=== PATIENT | female | born 1980 | race Caucasian/White ===

== ENCOUNTER → 2016-11-05 | Outpatient (CLI) | payer BC ==
[~2016-11-05] MED LIST: LEVO75TA PO; PRENTAB26 PO
[2016-11-05 12:32] LABS: URINE APPEARANCE CLEAR (CLEAR); URINE BILIRUBIN NEG (NEG); URINE COLOR YELLOW; URINE NITRITE NEG (NEG); URINE PH 6.5 (4.5-7.5); URINE SPECIFIC GRAVITY 1.012 (1.000-1.030); UROBILINOGEN NEG (NEG)
[2016-11-05 12:46] LABS: MANUAL MICROSCOPIC REQUIRED? NO; REVIEW REQ? NO
== END | disposition home or self-care (01) ==
LOC: C.LABSPEC 11:06
PROVIDERS: ATTEND Obstetrics & Gynecology
DX: O09.521 Supervision of elderly multigravida, first trimester (principal); Z3A.00 Weeks of gestation of pregnancy not specified

== ENCOUNTER → 2016-11-14 | Outpatient (CLI) | payer BC | END | disposition home or self-care (01) | LOC: C.PAPS 11:00 | PROVIDERS: ATTEND Obstetrics & Gynecology | DX: O99.281 Endocrine, nutritional and metabolic diseases complicating pregnancy, first trimester (principal); Z01.419 Encounter for gynecological examination (general) (routine) without abnormal findings; Z11.51 Encounter for screening for human papillomavirus (HPV) ==

== ENCOUNTER → 2016-11-14 | Outpatient (CLI) | payer BC ==
[2016-11-14 10:05] LABS: BASO % 0.2 %; BASO ABS # 0.02 K/uL (0-0.2); COMPLETE YES; EOS % 0.6 %; HEMATOCRIT 40.3 % (37-47); IG% 0.2 %; LYMPH % 19.2 %; LYMPH ABS # 1.58 K/uL (1.2-3.4); MEAN CELL VOLUME 86.7 fL (80-100); MEAN CORPUSCULAR HGB CONC 35.7 g/dl (32-36); MEAN PLATELET VOLUME 9.5 fL (7.4-10.4); NEUT % 75.8 %; PLATELET COUNT 226 K/uL (130-400); RED BLOOD COUNT 4.65 M/uL (4.2-5.4); WHITE BLOOD COUNT 8.24 K/uL (4.8-10.8)
[2016-11-14 10:31] LABS: THYROID STIMULATING HORMONE 3.12 uIu/ml (0.300-4.500)
[2016-11-16 14:08] LABS: CHLAMYDIA TRACH RNA*** NOT DETECTED (NOT DETECTED); GC (NEIS GONORRHOEAE)RNA** NOT DETECTED (NOT DETECTED)
== END | disposition home or self-care (01) ==
LOC: C.LAB1850 08:57
PROVIDERS: ATTEND Obstetrics & Gynecology
DX: O09.523 Supervision of elderly multigravida, third trimester (principal)

== ENCOUNTER → 2016-12-12 | Outpatient (CLI) | payer BC ==
[2016-12-12 12:07] LABS: THYROID STIMULATING HORMONE 2.19 uIu/ml (0.300-4.500)
== END | disposition home or self-care (01) ==
LOC: C.LAB1850 10:18
PROVIDERS: ATTEND Obstetrics & Gynecology
DX: O99.281 Endocrine, nutritional and metabolic diseases complicating pregnancy, first trimester (principal)

== ENCOUNTER → 2017-01-09 | Outpatient (CLI) | payer BC ==
[2017-01-09 17:27] LABS: GTGD 50 Grams
== END | disposition home or self-care (01) ==
LOC: C.LAB1850 16:04
PROVIDERS: ATTEND Obstetrics & Gynecology
DX: O99.281 Endocrine, nutritional and metabolic diseases complicating pregnancy, first trimester (principal); O09.522 Supervision of elderly multigravida, second trimester; Z3A.00 Weeks of gestation of pregnancy not specified

== ENCOUNTER → 2017-01-28 | Outpatient (CLI) | payer BC | END | disposition home or self-care (01) | LOC: C.LAB1850 09:01 | PROVIDERS: ATTEND Obstetrics & Gynecology | DX: O28.1 Abnormal biochemical finding on antenatal screening of mother (principal) ==

== ENCOUNTER → 2017-04-01 | Outpatient (CLI) | payer BC ==
[2017-04-01 19:18] LABS: URINE APPEARANCE CLEAR (CLEAR); URINE BILIRUBIN NEG (NEG); URINE COLOR YELLOW; URINE NITRITE NEG (NEG); URINE SPECIFIC GRAVITY 1.012 (1.000-1.030); UROBILINOGEN NEG (NEG)
[2017-04-01 19:20] LABS: MANUAL MICROSCOPIC REQUIRED? NO; REVIEW REQ? NO
== END | disposition home or self-care (01) ==
LOC: C.LABSPEC 17:48
PROVIDERS: ATTEND Obstetrics & Gynecology
DX: O99.283 Endocrine, nutritional and metabolic diseases complicating pregnancy, third trimester (principal); Z3A.00 Weeks of gestation of pregnancy not specified

== ENCOUNTER → 2017-04-08 | Outpatient (CLI) | payer BC | END | disposition home or self-care (01) | LOC: C.LAB1850 08:15 | PROVIDERS: ATTEND Obstetrics & Gynecology | DX: O09.523 Supervision of elderly multigravida, third trimester (principal); O99.283 Endocrine, nutritional and metabolic diseases complicating pregnancy, third trimester; E03.9 Hypothyroidism, unspecified ==

== ENCOUNTER → 2017-06-04 | Outpatient (CLI) | payer BC | END | disposition home or self-care (01) | LOC: C.LABSPEC 18:08 | PROVIDERS: ATTEND Obstetrics & Gynecology | DX: O09.523 Supervision of elderly multigravida, third trimester (principal); Z3A.00 Weeks of gestation of pregnancy not specified ==

== ENCOUNTER 2017-06-20 03:48 | Inpatient (IN) | payer BC ==
[~2017-06-20] VITALS: Ht 167.6 cm; Wt 97.0 kg
[2017-06-20] MEDS ORDERED: LACTATED RINGER'S 1000ML 1,000 ML IV SCH (04:40)
[2017-06-20] MEDS ORDERED: LACTATED RINGER'S 1000ML 1,000 ML IV PRN (04:40)
[2017-06-20] MEDS ORDERED: NURSING VERBAL MED ORDER ONE ×2 (04:45→18:45)
[2017-06-20 05:21] LABS: HEMATOCRIT 39.2 % (37-47); HEMOGLOBIN 13.3 g/dL (12.0-16.0); MEAN CELL VOLUME 88.9 fL (80-100); MEAN CORPUSCULAR HEMOGLOBIN 30.2 pg (25-34); MEAN CORPUSCULAR HGB CONC 33.9 g/dl (32-36); MEAN PLATELET VOLUME 9.2 fL (7.4-10.4); PLATELET COUNT 164 K/uL (130-400); RED CELL DISTRIBUTION WIDTH CV 13.2 % (11.5-14.5); RED CELL DISTRIBUTION WIDTH SD 42.9 fL (36.4-46.3)
[2017-06-20] MEDS ORDERED: LEVOTHYROXINE 88 MCG TAB PO ONE (05:30)
[2017-06-20] MEDS ORDERED: BUPIVACAINE 0.25% 30 ML VIAL ONE (05:34)
[2017-06-20] MEDS ORDERED: FENTANYL CITRATE INJ 50 MCG/1 ML 2 ML VIAL ONE (05:34)
[2017-06-20] MEDS ORDERED: EpHEDrine SULFATE INJ 50 MG/ML AMP ONE (05:34)
[2017-06-20] MEDS ORDERED: FENTANYL 2MCG/ML ROPIV 1.25MG/ML 100ML BAG EPI ONE (05:35)
[2017-06-20] MEDS ORDERED: NALOXONE HCL INJ 1 MG in SODIUM CHLORIDE 0.9% 1000ML 1,000 ML IV PRN ×4 (06:16)
[2017-06-20] MEDS ORDERED: LACTATED RINGER'S 1000ML 500 ML IV PRN (06:16)
[2017-06-20 06:25] VITALS: Ht 167.6 cm; Wt 97.0 kg
[2017-06-20] MEDS ORDERED: FENTANYL 2MCG/ML ROPIV 1.25MG/ML 100ML BAG EPI PRN (06:30)
[2017-06-20] MEDS ORDERED: DiphenhydrAMINE HCL 50 MG/ML VIAL IV PRN (06:30)
[2017-06-20] MEDS ORDERED: NALOXONE HCL INJ 0.4 MG/1 ML VIAL/CARP IV PRN (06:30)
[2017-06-20] MEDS ORDERED: ONDANSETRON INJ 2 MG/ML 2 ML VIAL IV PRN (06:30)
[2017-06-20] MEDS ORDERED: EpHEDrine SULFATE INJ 50 MG/ML AMP IV PRN (06:30)
[2017-06-20] MEDS ORDERED: PROMETHAZINE HCL INJ 25 MG in SODIUM CHLORIDE 0.9% 50ML 50 ML IV PRN (06:30)
[2017-06-20] MEDS ORDERED: NALBUPHINE HCL INJ 10 MG/ML AMP IV PRN (06:30)
[2017-06-20] MEDS ORDERED: DIPHTHERIA/TETANUS/PERTUSSIS 0.5 ML SYR/VIAL IM. ONE (10:30)
[2017-06-20] MEDS ORDERED: SUPERCREAM 0.870 % 15GM JAR EXT PRN (10:30)
[2017-06-20] MEDS ORDERED: ACETAMINOPHEN 325 MG TAB PO PRN (10:30)
[2017-06-20] MEDS ORDERED: LANOLIN OINT EXT PRN (10:30)
[2017-06-20] MEDS ORDERED: BENZOCAINE 20% AER SPR 82.5 GM CAN EXT PRN (10:30)
[2017-06-20] MEDS ORDERED: ACETAMINOPHEN/CODEINE 300/30MG TAB PO PRN ×2 (10:30)
[2017-06-20] MEDS ORDERED: HYDROCORTISONE ACETATE 25 MG SUPP PR PRN (10:30)
[2017-06-20] MEDS ORDERED: OXYCODONE/ACETAMINOPHEN 5-325 TAB PO PRN (10:30)
--- NOTE | 2017-06-20 10:59 | Anesthesia Procedure Note ---
Anesthesia Epidural Removal Nt Date & Time Jun 20, 2017 at 10:59 Vital Signs Pain Intensity: 0.0 Notes Mental Status: alert / awake / arousable, participated in evaluation Nausea / Vomiting: adequately controlled Pain: adequately controlled Airway Patency, RR, SpO2: stable & adequate BP & HR: stable & adequate Hydration State: stable & adequate Neuraxial Anesthesia: was administered, sensory block is resolving Anesthetic Complications: no major complications apparent, pt satisfied with anesthetic care Epidural: removed without complications, with tip intact
[2017-06-20] MEDS: OXYTOCIN 30 UNITS/500ML NSS IV PRN ×2 (11:25→13:01)
--- NOTE | 2017-06-20 12:34 | DELIVERY SUMMARY ---
DATE OF OPERATION: 06/20/2017 Xi presented in labor for Dr. Painter had signed over. She was 7-8 cm. She had an epidural, group B strep negative, category 1 tracing. She rapidly progressed to fully dilate and pushed. There was a small band tissue preventing delivery related to her prior episiotomy. I asked the patient if she preferred to deliver through this or have a small episiotomy. She said small episiotomy was her preference. So, a 1 cm episiotomy was performed midline. Baby's head soon delivered. Clear fluid. No nuchal cord. Mouth and nares suctioned. Baby was delivered with gentle traction. No excessive force used. Live vigorous male infant. Cord clamped and cut. Cord gases obtained. Cord blood obtained. Placenta removed with gentle traction. IV Pitocin started. Small median episiotomy repaired with 3-0 Vicryl. No extension. Sponge and instrument counts correct. Estimated blood loss 250 mL. I attest to the content of the Intraoperative Record and any orders documented therein. Any exception s are noted below.
[2017-06-20 16:50] VITALS: BP 114/77; PULSE 99; TEMP 37.2
[2017-06-20 20:20] VITALS: BP 116/72; PULSE 99; TEMP 37
[2017-06-20] MEDS: IBUPROFEN 600 MG TAB PO PRN (20:34)
[2017-06-20] MEDS: PRENATAL VITAMIN TAB PO SCH (20:35)
[2017-06-20] MEDS: DOCUSATE SODIUM 100 MG CAP PO SCH (20:35)
[2017-06-21 00:20] VITALS: BP 103/61; PULSE 77; TEMP 36.6
[2017-06-21 07:11] LABS: HEMATOCRIT 28.4 % (37-47)
[2017-06-21] MEDS: LEVOTHYROXINE 88 MCG TAB PO SCH (07:24)
[2017-06-21 07:25] VITALS: BP 114/70; PULSE 78; TEMP 36.6
[2017-06-21] MEDS ORDERED: PRENATAL VITAMIN TAB PO SCH (08:00)
--- NOTE | 2017-06-21 08:03 | Progress Note ---
Subjective Jun 21, 2017. Subjective conversation w/ patient, physical exam, chart review Ambulation: ambulating normally Voiding: no voiding problems Diet Tolerance: Regular Diet Lochia: Small Objective Vital Signs Date Time Temp Pulse Resp B/P (MAP) Pulse Ox O2 Delivery O2 Flow Rate FiO2 06/21/17 00:20 Room Air 06/21/17 00:20 36.6 77 18 103/61 (75) Room Air 06/20/17 20:20 37.0 99 18 116/72 (87) Room Air 06/20/17 16:50 Room Air 06/20/17 16:50 37.2 99 20 114/77 (89) Room Air Physical Exam General Appearance: WELL-APPEARING Abdomen: non tender Fundus: Firm Extremities: no calf tenderness Laboratory Results Last 24 Hours Test 06/20/17 23:28 06/21/17 06:12 Amniotic Fluid Protein POS Hemoglobin 10.0 g/dL Hematocrit 28.4 % Assessment and Plan Post- Day#: 1 Continue Routine Care: Patient ambulating doing well breast-feeding well minimal bleeding continue current care
[2017-06-21] MEDS: DOCUSATE SODIUM 100 MG CAP PO SCH ×2 (09:03→20:21)
[2017-06-21] MEDS: IBUPROFEN 600 MG TAB PO PRN (10:42)
[2017-06-21 15:50] VITALS: BP 118/71; PULSE 75; TEMP 36.5
[2017-06-21] MEDS ORDERED: BISACODYL 5 MG TABEC PO SCH (20:00)
[2017-06-21] MEDS: PRENATAL VITAMIN TAB PO SCH (20:21)
[2017-06-21 23:20] VITALS: BP 108/68; PULSE 77; TEMP 36.8
--- NOTE | 2017-06-22 06:29 | Progress Note ---
Subjective Jun 22, 2017. Subjective conversation w/ patient, physical exam, chart review, lab review Ambulation: ambulating normally Voiding: no voiding problems Diet Tolerance: Regular Diet Lochia: Small Feeding Type: Breast Feeding Objective Vital Signs Date Time Temp Pulse Resp B/P (MAP) Pulse Ox O2 Delivery O2 Flow Rate FiO2 06/21/17 23:20 36.8 77 18 108/68 (81) Room Air 06/21/17 23:20 Room Air 06/21/17 15:50 Room Air 06/21/17 15:50 36.5 75 16 118/71 (87) 06/21/17 07:25 36.6 78 16 114/70 (85) Room Air 06/21/17 07:25 Room Air Physical Exam General Appearance: WELL-APPEARING Abdomen: non tender Fundus: Firm Extremities: no calf tenderness Laboratory Results Last 24 Hours Test 06/22/17 05:51 Assessment and Plan Post- Day#: 2 Continue Routine Care: day 2 patient is doing well tenderness minimal bleeding wishes discharged home
--- NOTE | 2017-06-22 06:30 | Discharge Instructions ---
Discharge Instructions Date of Service Jun 22, 2017. Admission Reason for Admission: LABOR Discharge Discharge Diagnosis / Problem: Discharge Goals Goal(s): Routine recovery after delivery Activity Recommendations Activity Limitations: per Instructions/Follow-up section . Instructions / Follow-Up Instructions / Follow-Up ACTIVITY RECOMMENDATIONS: * Gradual return to full activity over the next 2-3 weeks. * No lifting - nothing heavier than baby over the next 2-3 weeks. * Do not engage in vigorous exercise, sexual activity or sports until cleared by your physician. * Do not drive or operate any motorized equipment until cleared by your physician. * You may shower/bathe daily. MEDICATIONS: For discomfort or pain, you may use Acetaminophen (Tylenol), Ibuprofen (Advil), or Naproxen (Aleve) following the package directions. For constipation you may use Colace following the package directions. BREAST CARE: If you are not breast feeding: * Wear a supportive bra 24 hours a day for one to two weeks. * Avoid stimulating your breasts and nipples as much as possible during the first few weeks after delivery. * When taking a shower, have the warm water hit your back, not breasts. * When your breasts feel full, apply ice packs. Usually three to four times a day helps ease the discomfort. * Take a mild pain medication (Tylenol / Motrin) when you are uncomfortable. If breast feeding: * Use breast milk to lubricate nipples. Lansinoh cream may be used for sore nipples. You do not need to remove cream prior to breast feeding. If using a different brand of cream, check the label for directions regarding removal of cream prior to nursing. * Wear a supportive bra. * If having problems with breasts or breast feeding, call a dairy feed sales consultant or your health care provider. EPISIOTOMY CARE: After delivery, if you have an episiotomy (stitches), the following steps will ease discomfort and aid healing. * For the first 24 hours after delivery, place ice packs next to your episiotomy to help reduce swelling. * After the first 24 hour-period, sitz baths, either portable or in the tub, are suggested. A shower with a shower arm sprayed over the episiotomy may be comforting. * Shannan care should be done after each voiding and bowel movement. Squirt warm water from a plastic bottle over the perineum (region of the body between the anus and urinary opening) and pat dry. * Use Dermoplast to ease discomfort. Shake container. [place] directly over the episiotomy. Place a Tucks on a clean sanitary pad next to your episiotomy. SPECIAL CARE INSTRUCTIONS: When you are discharged from the hospital, it is important for you to follow the instructions listed below: * During the first week at home, you should be able to care for yourself and your baby. In addition, the usual light household activities are encouraged. * Limit your activities to the way you feel. Do not try to clean the house or move furniture. Be sensible. * If you actively engage in sports and have done so up until the time of your delivery, you may resume these activities as soon as you feel able. This may take up to one month or even longer. Use good judgment. * Continue to take your vitamins for at least six weeks after the of your baby. * Your diet need not be limited unless you were on a special diet before your delivery. Breast-feeding mothers need around 2500 calories per day and at least 64-80 ounces of fluid per day (8 to 10 glasses). * You should eat foods from the four major food groups. Crash diets or fad diets are to be avoided. Eating lean meats, fresh fruits and vegetables, low-fat dairy products, high fiber foods and a regular exercise program, will help you get back to your pre- weight without putting your health at risk. * Constipation is sometimes a problem after delivery. Take a mild laxative as needed. If breast feeding, Milk of Magnesia is acceptable to use. You may use a suppository or Fleets enema if no episiotomy. * A daily shower or tub bath is suggested. Be sure to thoroughly and gently dry the perineum. * A bloody vaginal discharge will usually continue until around four weeks post . A small amount of bleeding may continue for as long as six weeks. Vaginal discharge changes from the bright red bleeding after delivery to pink then brownish and finally yellowish-pink before becoming white and disappearing. * Bleeding may increase with activity. Your first period may come in 4-8 weeks. If you are breast feeding, your period may be delayed even longer. * [place] (sex) can begin whenever both you and your partner feel comfortable and do not have any form of genital infection. It is recommended that you wait at least six weeks for internal and external healing to occur. If you have questions, please talk to your health care practitioner. A condom should be used to prevent infection and . * Foreplay, gentle intercourse and lubrication is very important the first several times to prevent pain. A water-based lubricant such as K-Y jelly or Astroglide may be used. * If you have RH negative blood and your baby is RH positive, you will receive RHOGAM by injection prior to discharge. The nurse will give you a card to keep with you that has the date and place that you received RHOGAM after delivery. * During your care, you had a Rubella screen done to check for the presence of rubella antibodies in your blood. If your test was negative, you will receive a Rubella vaccine prior to discharge. This vaccine may cause a fever, soreness at the injection site and flu-like symptoms. If these symptoms persist, notify your health care practitioner. is not advised for one month after a Rubella vaccine. * Verbalizes understanding of car seat law as reviewed with patient nursing. * Car Seat hand-out given and reviewed with patient by nursing. * Shaken baby information reviewed with patient by nursing. Call you doctor if: * Heavy bleeding (saturating several pads an hour) or passing clots the size of your fist. * A fever >101 degrees F (38.3 degrees C) on two occasions four hours apart and /or chills. * Unusual pain in the pelvic or vaginal areas. * "Baby Blues" lasting longer than two weeks. If you have any questions or concerns, call your health care practitioner at . FOLLOW UP VISIT: * Please call the office at to schedule a 6 week examination. It is important you keep this appointment. It is important for you to make arrangements for either yearly or twice yearly check-ups thereafter. Current Hospital Diet Patient's current hospital diet: Regular OB Diet Discharge Diet Recommended Diet: Regular OB Diet Pending Studies Studies pending at discharge: no Medical Emergencies . Who to Call and When: Medical Emergencies: If at any time you feel your situation is an emergency, please call 911 immediately. . Non-Emergent Contact Non-Emergency issues call your: Leather Skinner . . "Provider Documentation" section prepared by Gene Rodriguez. .
[2017-06-22] MEDS ORDERED: BISACODYL 10 MG SUPP PR PRN (07:00)
[2017-06-22 07:01] LABS: HEMATOCRIT 30.2 % (37-47); HEMOGLOBIN 10.5 g/dL (12.0-16.0); MEAN CELL VOLUME 89.3 fL (80-100); MEAN CORPUSCULAR HEMOGLOBIN 31.1 pg (25-34); MEAN CORPUSCULAR HGB CONC 34.8 g/dl (32-36); MEAN PLATELET VOLUME 8.7 fL (7.4-10.4); PLATELET COUNT 177 K/uL (130-400); RED CELL DISTRIBUTION WIDTH CV 13.4 % (11.5-14.5); RED CELL DISTRIBUTION WIDTH SD 43.7 fL (36.4-46.3); WHITE BLOOD COUNT 10.85 K/uL (4.8-10.8)
[2017-06-22 07:15] VITALS: BP 112/72; PULSE 83; TEMP 36.5
[2017-06-22] MEDS: LEVOTHYROXINE 88 MCG TAB PO SCH (07:17)
[2017-06-22] MEDS: DOCUSATE SODIUM 100 MG CAP PO SCH (09:35)
[2017-06-22] MEDS: IBUPROFEN 600 MG TAB PO PRN (09:35)
[2017-06-22 11:40] VITALS: BP_DIAS 72; PULSE 83; TEMP 36.5
== END 2017-06-22 12:30 | disposition home or self-care (01) | DRG 775 ==
LOC: C.LD 03:48 → C.OPB 03:48 → C.LD 04:43 → C.OPB 04:45 → C.OBG 16:43
PROVIDERS: ADMIT Obstetrics & Gynecology; ATTEND Obstetrics & Gynecology
PROC: 0W8NXZZ Division of Female Perineum, External Approach (ICD-10-PCS; principal; 2017-06-20)
PROC: 10E0XZZ Delivery of Products of Conception, External Approach (ICD-10-PCS; principal; 2017-06-20)
DX: O09.523 Supervision of elderly multigravida, third trimester (principal); Z3A.38 38 weeks gestation of pregnancy; Z37.0 Single live birth